=== PATIENT | female | born 1955 | race Caucasian/White ===

== ENCOUNTER 2018-10-08 14:27 | Inpatient (IN) | payer OTHER ==
[~2018-10-08] VITALS: Ht 157.5 cm; Wt 116.3 kg
[2018-10-08] MEDS ORDERED: ONDANSETRON HCL 4 MG/2 ML VIAL IV ONE (16:15)
[2018-10-08] MEDS ORDERED: MORPHINE SULFATE 4 MG/ML SYR/VIAL IV ONE (16:15)
[2018-10-08 18:06] LABS: Basophils # (auto) 0.1 uL; Eosinophils # (auto) 0.2 uL; Eosinophils % (auto) 1.9 % (0.0-7.0); Hematocrit 32.4 % (36.0-46.0); Hemoglobin 10.8 g/dL (12.2-16.2); Lymphocytes # (auto) 1.9 uL; Lymphocytes % (auto) 18.2 % (10.0-50.0); Mean Corpuscular Hemoglobin 30.2 pg (28.0-32.0); Mean Corpuscular Hgb Conc. 33.4 g/dL (32.0-36.0); Mean Corpuscular Volume 90.3 fL (80.0-100.0); Monocytes # (auto) 0.8 uL; Neutrophils # (auto) 7.3 uL; Neutrophils % (auto) 70.9 % (37.0-80.0); Platelet Count (auto) 152 10^3/uL (140-450); Red Blood Cells 3.58 10^6/uL (4.0-5.20); Red Cell Distribution Width 14.1 % (11.8-14.3); White Blood Cell 10.4 10^3/uL (4.4-10.8)
[2018-10-08 18:21] LABS: INR 1.11 (0.9-1.15); Partial Thromboplastin Time 27.6 sec (23.64-32.05)
[2018-10-08 18:26] LABS: Anion Gap 7 (5-15); BUN/Creatinine Ratio 27.4; Blood Urea Nitrogen 26 mg/dL (7-18); Carbon Dioxide 29 mmol/L (21-32); Chloride 107 mmol/L (98-107); GFR African American 76 mL/min; Glucose 102 mg/dL (74-106); Potassium 3.8 mmol/L (3.5-5.1); Sodium 143 mmol/L (136-145)
[2018-10-08 18:27] LABS: Alanine Aminotransferase 40 U/L (13-56); Albumin 2.9 g/dL (3.4-5.0); Aspartate Aminotransferase 45 U/L (15-37); Calcium 8.4 mg/dL (8.5-10.1); GFR Non-African American 63 mL/min
[2018-10-08 18:32] LABS: Alkaline Phosphatase 153 U/L (45-117); Bilirubin, Total 0.6 mg/dL (0.2-1.0); Total Protein 7.3 g/dL (6.4-8.2)
[2018-10-08] MEDS ORDERED: MORPHINE SULF INJ 2 MG/ML SYRINGE 1ML IV PRN (18:45)
[2018-10-08] MEDS ORDERED: ACETAMINOPHEN 500 MG TAB PO PRN (18:45)
[2018-10-08] MEDS ORDERED: NITROGLYCERIN 0.4 MG SL TAB SL PRN (18:45)
[2018-10-08] MEDS ORDERED: DEXTROSE (50%) 50ML SYRG IV PRN (18:45)
[2018-10-08] MEDS ORDERED: LACTULOSE 20Gm/30ML SOLN PO PRN (18:45)
[2018-10-08] MEDS: SODIUM CHLORIDE 0.9% 1,000 ML IV SCH (19:00)
[2018-10-08 20:00] VITALS: BP 133/48
--- NOTE | 2018-10-08 20:00 | NUR ---
Telemetry admit from ER LLANOMAGDA admitted to Telemetry unit after SBAR received. Patient oriented to PRABHA SOTO RN primary RN, unit, room, bed, and unit policies regarding patient care and visiting hours. Patient now on continuous telemetry monitoring, tele box # 15 and telemetry reading on arrival to unit is Sinus Rhytm as 74bpm. Patient placed on bedside oxygen, weighed by bedscale and encouraged to call if they need something. All questions and concerns addressed, patient verbalized understanding.
--- NOTE | 2018-10-08 20:00 | NUR ---
Patient is alert and awake, c/o pain to right lower extremity of 10/10. Noted multiple small scabs and bruising to both upper and lower extremities. large bruising to right hip and redness to bilateral abdominal folds. Patient has Ramirez catheter draining clear yellow urine. Bed placed in lowest position, bed alarm turned on and call lights within reach.
[2018-10-08] MEDS ORDERED: cefTRIAXone 1GM/50ML D5W 50 ML IV ONE (20:30)
[2018-10-08] MEDS: MORPHINE SULF INJ 2 MG/ML SYRINGE 1ML IV PRN (21:03)
[2018-10-08] MEDS: ACCU-CHEK COMFORT CURVE STRIP VI SCH (21:49)
[2018-10-08] MEDS: InsuLIN REG 1unit/0.01ml Soln (100units/ml) SC SCH (21:49)
[2018-10-08] MEDS: CLINDAMYCIN 600MG IV 50 ML IV SCH (21:49)
[2018-10-08 22:00] VITALS: BP 133/48
[2018-10-08] MEDS: HYDROcodone-ACET 5/325MG TAB PO PRN (23:23)
[2018-10-09] MEDS: MORPHINE SULF INJ 2 MG/ML SYRINGE 1ML IV PRN ×4 (01:24→16:45)
[2018-10-09 05:00] VITALS: BP 129/63
[2018-10-09] MEDS: CLINDAMYCIN 600MG IV 50 ML IV SCH ×2 (05:37→14:07)
[2018-10-09] MEDS: SODIUM CHLORIDE 0.9% 1,000 ML IV SCH ×2 (06:26→15:27)
[2018-10-09] MEDS: ACCU-CHEK COMFORT CURVE STRIP VI SCH ×3 (06:26→17:39)
[2018-10-09] MEDS: InsuLIN REG 1unit/0.01ml Soln (100units/ml) SC SCH ×3 (06:27→17:40)
--- NOTE | 2018-10-09 06:39 | NUR ---
PATIENT IS RESTING IN BED WITH EYES CLOSED. NO DISTRESS NOTED AND PATIENT JUST RECEIVED MORPHINE FOR PAIN OF 10/10 TO RIGHT LEG.
--- NOTE | 2018-10-09 07:30 | NUR ---
Opening Shift Note Assumed care of patient, awake and alert. No S/S of distress/SOB or pain. Instructed on POC and to call for assist PRN, will continue to monitor for changes Q1hr and PRN. Bed in low and locked position, rails up x2, no-slip socks on.
[2018-10-09] MEDS: HYDROcodone-ACET 5/325MG TAB PO PRN ×2 (08:59→15:28)
[2018-10-09 09:22] VITALS: BP 133/55
[2018-10-09] MEDS ORDERED: PANTOPRAZOLE 40 MG TAB PO SCH (10:00)
--- NOTE | 2018-10-09 12:09 | NUR ---
SPOKE TO [place] UPDATED ON PLAN OF CARE.
[2018-10-09 12:45] VITALS: BP 153/69
--- NOTE | 2018-10-09 12:50 | NUR ---
DR MCGEE AT BEDSIDE ORDERS FOR TRANSFER TO [place], PATIENT VERBALIZES UNDERSTANDING.
--- NOTE | 2018-10-09 14:10 | NUR ---
Transfer order faxed to [facility] , this pt's CM at [facility] for today is Arnav
[2018-10-09 15:04] LABS: Hematocrit 34.2 % (36.0-46.0); Hemoglobin 11.5 g/dL (12.2-16.2)
[2018-10-09] MEDS ORDERED: PERCOT PO (15:22)
[2018-10-09] MEDS ORDERED: GABA-339 PO (15:22)
[2018-10-09] MEDS ORDERED: INSR100KIT SC ×2 (15:22)
[2018-10-09] MEDS ORDERED: METF-370 PO (15:22)
[2018-10-09] MEDS ORDERED: FLUO-125 PO (15:22)
[2018-10-09] MEDS ORDERED: FLUT500M2 INH (15:22)
[2018-10-09] MEDS ORDERED: ATOR20TA50 PO (15:22)
[2018-10-09] MEDS ORDERED: POTA1TAB61 PO (15:22)
[2018-10-09] MEDS ORDERED: INSUINJ48 SC ×2 (15:22)
[2018-10-09] MEDS ORDERED: CEPH500C PO (15:22)
[2018-10-09] MEDS ORDERED: FURO40TA4 PO (15:22)
[2018-10-09] MEDS ORDERED: DULO60CA PO (15:22)
--- NOTE | 2018-10-09 15:31 | NUR ---
MED REC UPDATED
[2018-10-09 16:24] VITALS: BP 144/55
--- NOTE | 2018-10-09 17:10 | NUR ---
[facility] ACCEPTED PATIENT IS GOING TO [place] [id number] TRANSPORT TIME IS SET AT 1930 Addendum: 10/09/18 at 1735 by KELLY STEWART RN RN SPOKE TO VELVET-LIBRARY DIRECTOR FROM [facility]
--- NOTE | 2018-10-09 18:55 | NUR ---
REPORT CALLED TO DONNER SPOKE TO DAHLIA HEBERT AT [phone]
--- NOTE | 2018-10-09 19:28 | NUR ---
DISCHARGE Discharge instructions given as ordered. Encourage to follow up with PMD as instructed. All questions and concerns addressed. Patient verbalized understanding. Medication reconciliation form completed and copy given to patient. IV remained intact on discharge. Telemetry unit returned to [facility]. Patient taken to vehicle via gurney and [facility] staff with all personal belongings. No distress noted at time of departure.
[2018-10-09] MEDS ORDERED: cefTRIAXone 1GM/50ML D5W 50 ML IV SCH (21:00)
== END 2018-10-09 19:30 | disposition short-term general hospital (02) | DRG 563 ==
LOC: EDBD 14:27 → ER 14:50 → TELE 14:51 → TELE-EAST 19:57
PROVIDERS: ADMIT Internal Medicine; ATTEND Internal Medicine
DX: S82.001A Unspecified fracture of right patella, initial encounter for closed fracture (principal); L03.115 Cellulitis of right lower limb; Z68.42 Body mass index [BMI] 45.0-49.9, adult; D63.8 Anemia in other chronic diseases classified elsewhere; M19.90 Unspecified osteoarthritis, unspecified site; E11.42 Type 2 diabetes mellitus with diabetic polyneuropathy; E66.01 Morbid (severe) obesity due to excess calories; I70.90 Unspecified atherosclerosis; W18.39XA Other fall on same level, initial encounter; Y93.89 Activity, other specified; Y92.89 Other specified places as the place of occurrence of the external cause; Y99.8 Other external cause status; G89.29 Other chronic pain; Z79.891 Long term (current) use of opiate analgesic; Z83.3 Family history of diabetes mellitus; Z88.8 Allergy status to other drugs, medicaments and biological substances; Z91.013 Allergy to seafood
CPT/HCPCS: 36415; 51702; 71045; 73130; 73562; 73630; 73700; 80053; 82962; 83036; 84484; 85014; 85018; 85025; 85610; 85730; 96374; 96375; G0378; J0696; J1815; J2405; J3490; J7042

== ENCOUNTER 2019-09-20 15:07 | Inpatient (IN) | payer MEDICARE, MEDICAID ==
[~2019-09-20] VITALS: Ht 157.5 cm; Wt 105.0 kg
[~2019-09-20 15:07] MED LIST: ATOR20TA50 PO; CEPH500C PO; DULO60CA PO; FLUO-125 PO; FLUT500M2 INH; FURO40TA4 PO; GABA-339 PO; INSR100KIT SC; INSUINJ48 SC; METF-370 PO; PERCOT PO; POTA1TAB61 PO; levoFLOXacin 500MG 100 ML IV ONE
[2019-09-20] MEDS ORDERED: PIPERACILLIN-TAZOB 3.375GM 100 ML IV ONE (15:45)
[2019-09-20 16:18] LABS: Basophils # (auto) 0.1 10 ^3/uL (0-0.2); Basophils % (auto) 0.8 % (0.0-2.0); Eosinophils # (auto) 0.1 10 ^3/uL (0-0.8); Eosinophils % (auto) 2.4 % (0.0-7.0); Hematocrit 28.6 % (36.0-46.0); Hemoglobin 9.4 g/dL (12.2-16.2); Lymphocytes # (auto) 1.3 10 ^3/uL (0.4-5.4); Lymphocytes % (auto) 20.2 % (10.0-50.0); Mean Corpuscular Hemoglobin 29.4 pg (28.0-32.0); Mean Corpuscular Hgb Conc. 32.9 g/dL (32.0-36.0); Mean Corpuscular Volume 89.3 fL (80.0-100.0); Monocytes # (auto) 0.6 10 ^3/uL (0-1.3); Monocytes % (auto) 10.4 % (0.0-12.0); Neutrophils # (auto) 4.1 10 ^3/uL (1.6-8.6); Neutrophils % (auto) 66.2 % (37.0-80.0); Nucleated Red Blood Cells % 0.1 %; Platelet Count (auto) 177 10^3/uL (140-450); Red Cell Distribution Width 14.1 % (11.8-14.3); White Blood Cell 6.2 10^3/uL (4.4-10.8)
[2019-09-20 16:33] LABS: Alanine Aminotransferase 14 U/L (13-56); Albumin 2.3 g/dL (3.4-5.0); Anion Gap 1 (5-15); BUN/Creatinine Ratio 16.7; Blood Urea Nitrogen 23 mg/dL (7-18); Carbon Dioxide 38 mmol/L (21-32); Chloride 102 mmol/L (98-107); GFR African American 49 mL/min; GFR Non-African American 41 mL/min; Glucose 107 mg/dL (74-106); Potassium 3.7 mmol/L (3.5-5.1); Sodium 141 mmol/L (136-145)
[2019-09-20 16:38] LABS: Alkaline Phosphatase 130 U/L (45-117); Aspartate Aminotransferase 25 U/L (15-37); Bilirubin, Total 0.6 mg/dL (0.2-1.0); INR 1.2 (0.9-1.15); Total Protein 7.8 g/dL (6.4-8.2)
[2019-09-20 17:50] LABS: Urine Bacteria NONE SEEN /hpf (None Seen); Urine Blood Negative /uL (Negative); Urine Mucus FEW (None Seen); Urine Specific Gravity 1.012 (1.001-1.035); Urine WBC 1 /hpf (0 - 5)
[2019-09-20] MEDS ORDERED: DEXTROSE (50%) 50ML SYRG IV PRN (21:15)
[2019-09-20] MEDS ORDERED: NITROGLYCERIN 0.4 MG SL TAB SL PRN (21:15)
[2019-09-20] MEDS ORDERED: MORPHINE SULF INJ 2 MG/ML SYRINGE 1ML IV PRN (21:15)
[2019-09-20] MEDS ORDERED: ONDANSETRON HCL 4 MG/2 ML VIAL IV PRN (21:15)
[2019-09-20] MEDS ORDERED: FUROSEMIDE 40 MG/4 ML VIAL IV ONE (21:15)
[2019-09-20] MEDS ORDERED: ACETAMINOPHEN 325 MG TAB PO PRN (21:15)
[2019-09-20] MEDS: ACCU-CHEK COMFORT CURVE STRIP VI SCH (22:00)
[2019-09-20] MEDS: ATORVASTATIN 20 MG TAB PO SCH (23:10)
[2019-09-20] MEDS: GABAPENTIN 300 MG CAP PO SCH (23:10)
[2019-09-20] MEDS: InsuLIN REG 1unit/0.01ml Soln (100units/ml) SC SCH (23:11)
[2019-09-21] MEDS: HYDROcodone-ACET 5/325MG TAB PO PRN ×3 (04:43→21:49)
[2019-09-21] MEDS: GABAPENTIN 300 MG CAP PO SCH ×3 (05:55→21:37)
[2019-09-21] MEDS: FUROSEMIDE 20 MG/2 ML VIAL IV SCH ×2 (05:55→17:09)
[2019-09-21 06:09] LABS: Basophils # (auto) 0.1 10 ^3/uL (0-0.2); Basophils % (auto) 1.1 % (0.0-2.0); Eosinophils # (auto) 0.1 10 ^3/uL (0-0.8); Eosinophils % (auto) 1.7 % (0.0-7.0); Hematocrit 27.3 % (36.0-46.0); Hemoglobin 9.1 g/dL (12.2-16.2); Lymphocytes # (auto) 0.9 10 ^3/uL (0.4-5.4); Lymphocytes % (auto) 12.9 % (10.0-50.0); Mean Corpuscular Hemoglobin 29.8 pg (28.0-32.0); Mean Corpuscular Hgb Conc. 33.4 g/dL (32.0-36.0); Mean Corpuscular Volume 89.2 fL (80.0-100.0); Monocytes # (auto) 0.7 10 ^3/uL (0-1.3); Monocytes % (auto) 10.7 % (0.0-12.0); Neutrophils % (auto) 73.6 % (37.0-80.0); Nucleated Red Blood Cells % 0.1 %; Platelet Count (auto) 175 10^3/uL (140-450); Red Blood Cells 3.07 10^6/uL (4.0-5.20); Red Cell Distribution Width 14.3 % (11.8-14.3); White Blood Cell 6.8 10^3/uL (4.4-10.8)
[2019-09-21 06:23] LABS: BUN/Creatinine Ratio 18.3; Calcium 8.4 mg/dL (8.5-10.1); Potassium 3.5 mmol/L (3.5-5.1)
[2019-09-21] MEDS: ACCU-CHEK COMFORT CURVE STRIP VI SCH ×4 (07:00→21:39)
[2019-09-21] MEDS: InsuLIN REG 1unit/0.01ml Soln (100units/ml) SC SCH ×4 (07:00→21:36)
[2019-09-21] MEDS ORDERED: levoFLOXacin 500MG 100 ML IV ONE (10:00)
--- NOTE | 2019-09-21 10:45 | NUR ---
Telemetry admit from ER RITIKAMAGDA admitted to Telemetry unit after SBAR received. Patient oriented to ABNER ANDERSON, primary RN, unit, room, bed, and unit policies regarding patient care and visiting hours. Patient now on continuous telemetry monitoring, tele box #24. Patient weighed by bedscale and encouraged to call if they need something. All questions and concerns addressed, patient verbalized understanding. Alert and oriented.
[2019-09-21] MEDS: levoFLOXacin 500MG 100 ML IV SCH (10:56)
[2019-09-21] MEDS: ENOXAPARIN SOD 40 MG/0.4 ML SYRINGE SC SCH ×2 (10:56→21:38)
[2019-09-21 11:00] VITALS: BP 132/83
[2019-09-21 13:00] VITALS: BP 128/64
[2019-09-21] MEDS ORDERED: IOHEXOL 350 MG/ML 100ML IJ ONE (13:05)
[2019-09-21 13:18] VITALS: BP 132/83
--- NOTE | 2019-09-21 14:34 | NUR ---
TRANSFER TO [facility] PATIENT WAS TRANSFERRED TO DAHLIA MANDEL ON CENTRAL UNIT. REPORT WAS GIVEN. IV PATENT AND INTACT. RUSHING PATENT AND INTACT. ALL BELONGINGS AND CHART WENT WITH PATIENT.
--- NOTE | 2019-09-21 14:36 | NUR ---
MRSA SWAB/ MED LIST NOTIFIED OF MED LIST REQUEST/MRSA SWAB NOTIFIED CENTRAL RN THAT MRSA SWAB IS NEEDED. ALSO, PATIENT DOESN'T KNOW WHAT MEDICATIONS SHE TAKES. INFORMED [facility] RN TO CALL [facility] TO SEE IF THEY CAN FAX OVER HER MED LIST.
--- NOTE | 2019-09-21 14:38 | NUR ---
Received patient from [facility] patient (-) COVID.
[2019-09-21 17:06] VITALS: BP 130/65
--- NOTE | 2019-09-21 19:00 | NUR ---
Endorsed patient to car shifter RN Mirian that patient has orders for MRSA Swab and needs list of medications from [facility]. Patient only remembers she takes Gabapentin at the facility.
--- NOTE | 2019-09-21 19:20 | NUR ---
RESUMED CARE OF PT, PT AWAKE AND ALERT NO SIGNS AND SYMPTOMS OF DISTRESS OR SOB NOTED. BED IS IN THE LOWEST LOCKED POSITION, SIDE RAILS UP X 2 CALL LIGHT WITH IN REACH. UPDATED PT ON PLAN OF CARE AND PT VERBALIZED UNDERSTANDING WILL CONTINUE TO MONITOR Q1HR AN PRN
[2019-09-21] MEDS: ATORVASTATIN 20 MG TAB PO SCH (21:37)
[2019-09-21 22:00] VITALS: BP 129/58
--- NOTE | 2019-09-21 22:45 | NUR ---
SENT MRSA SWAB
[2019-09-22 05:00] VITALS: BP_SYST 140; BP_SYST 99; BP_DIAS 55; BP_DIAS 59
[2019-09-22] MEDS: FUROSEMIDE 20 MG/2 ML VIAL IV SCH (06:03)
[2019-09-22] MEDS: GABAPENTIN 300 MG CAP PO SCH ×3 (06:04→21:26)
[2019-09-22] MEDS: ACCU-CHEK COMFORT CURVE STRIP VI SCH ×4 (06:04→21:27)
[2019-09-22] MEDS: InsuLIN REG 1unit/0.01ml Soln (100units/ml) SC SCH ×4 (06:05→21:59)
[2019-09-22] MEDS: HYDROcodone-ACET 5/325MG TAB PO PRN ×2 (07:02→22:01)
--- NOTE | 2019-09-22 07:38 | NUR ---
RESUMED CARE OF PT FROM NOC SHIFT RN. PT AWAKE, ALERT AND ORIENTED X4. SITTING ON EDGE OF BED AND EATING BREAKFAST. NO SIGNS AND SYMPTOMS OF DISTRESS OR SOB NOTED. BED IS IN THE LOWEST LOCKED POSITION, SIDE RAILS UP X 2 CALL LIGHT WITHIN REACH. PLAN OF CARE DISCUSSED AND PT VERBALIZED UNDERSTANDING. WILL CONTINUE TO MONITOR Q1HR AN PRN
[2019-09-22 08:15] VITALS: BP 129/54
[2019-09-22] MEDS: levoFLOXacin 500MG 100 ML IV SCH (11:17)
[2019-09-22] MEDS: ENOXAPARIN SOD 40 MG/0.4 ML SYRINGE SC SCH ×2 (11:17→21:27)
[2019-09-22 13:00] VITALS: BP 143/55
--- NOTE | 2019-09-22 16:58 | NUR ---
DR REYES AT BEDSIDE, DISCUSSED PLAN OF CARE WITH PATIENT. NEW ORDER FOR LASIX 40MG IV BID AND TO DISCONTINUE LASIX 20MG. ORDERED TO HOLD LOVENOX DOSE UNTIL THORACENTESIS PROCEDURE ON TUESDAY ORDERED REPEAT CHEST X-RAY IN THE AM.
[2019-09-22 17:10] VITALS: BP 140/57
[2019-09-22] MEDS ORDERED: FUROSEMIDE 40 MG/4 ML VIAL IV ONE (19:00)
--- NOTE | 2019-09-22 19:20 | NUR ---
Opening shift note Assumed care of patient who is A&Ox4 and sitting on side of bed dangling legs. No SOB or s/s of distress at this time. Discussed POC with patient who verbalized understanding. Og patent, draining pink-tinged urine. Replaced og leg stat-lock. Bed in lowest locked position with 2 side rails up, call light within reach. Will continue to monitor.
[2019-09-22] MEDS: ATORVASTATIN 20 MG TAB PO SCH (21:26)
[2019-09-22 22:00] VITALS: BP 135/61
--- NOTE | 2019-09-22 22:00 | NUR ---
Pain Patient c/o 08/28 generalized body pain. Administered [place] 5/325 per EMAR. Will continue to monitor.
--- NOTE | 2019-09-22 23:10 | NUR ---
Pain Reassessed Patient resting with eyes closed, respirations even and non-labored with no s/s of distress. Will continue to monitor.
--- NOTE | 2019-09-23 01:45 | NUR ---
Changed linens/gown Patient gown and linens soiled
[2019-09-23 05:00] VITALS: BP 112/56
--- NOTE | 2019-09-23 05:40 | NUR ---
PHONED [facility] FOR PATIENT MED REC. Talked to Mimi at [facility] who stated that the staff had no access to the patient's medication list and that Flora would be the person to contact in order to fax the medication list over. Flora will be available to call after 0800 hrs.
[2019-09-23] MEDS: ACCU-CHEK COMFORT CURVE STRIP VI SCH ×4 (06:40→22:08)
[2019-09-23] MEDS: GABAPENTIN 300 MG CAP PO SCH ×3 (06:40→22:08)
[2019-09-23] MEDS: FUROSEMIDE 40 MG/4 ML VIAL IV SCH ×2 (06:40→18:13)
[2019-09-23] MEDS: InsuLIN REG 1unit/0.01ml Soln (100units/ml) SC SCH ×4 (06:56→22:20)
--- NOTE | 2019-09-23 07:30 | NUR ---
Closing shift note Patient resting without s/s of distress, endorsed care to day Ainsley VILLAGOMEZ.
[2019-09-23 09:00] VITALS: BP 132/84
[2019-09-23] MEDS ORDERED: FLUoxetine HCL 20 MG CAP PO SCH (10:00)
[2019-09-23] MEDS: levoFLOXacin 500MG 100 ML IV SCH (10:01)
[2019-09-23] MEDS: ENOXAPARIN SOD 40 MG/0.4 ML SYRINGE SC SCH (10:01)
[2019-09-23] MEDS: HYDROcodone-ACET 5/325MG TAB PO PRN ×2 (10:09→22:07)
--- NOTE | 2019-09-23 10:22 | NUR ---
Chasidy Vaughn/ Re: Med list Contacted [facility] regarding patient med list. They stated they sent everything with her - H&P, falls, med list, etc. There are no papers in the patient's chart here. The charge nurse, Aviva, went over the medication list. Entered into med req.
[2019-09-23] MEDS: DULoxetine HCL 30 MG CAP PO SCH (10:29)
[2019-09-23] MEDS ORDERED: GABA300C10 PO (10:36)
[2019-09-23] MEDS ORDERED: DULO60CA PO (10:47)
[2019-09-23] MEDS ORDERED: ASCO500T11 PO (10:48)
[2019-09-23] MEDS ORDERED: ALBU2TAB4 INH (10:48)
[2019-09-23] MEDS ORDERED: INSREG3 SUBCUT (10:48)
[2019-09-23] MEDS ORDERED: FERR-20 PO (10:48)
[2019-09-23] MEDS ORDERED: OMEP20TA PO (10:48)
[2019-09-23] MEDS ORDERED: ALBUAER3 IN (10:48)
[2019-09-23] MEDS ORDERED: CHOL20007 PO (10:48)
[2019-09-23] MEDS ORDERED: TRAZ50TA2 PO (10:48)
[2019-09-23] MEDS ORDERED: ROPI6TAB PO (10:48)
[2019-09-23] MEDS ORDERED: AML5T PO (10:48)
[2019-09-23] MEDS ORDERED: CYCL15CA PO (10:48)
[2019-09-23 13:00] VITALS: BP 128/67
[2019-09-23 17:00] VITALS: BP 120/74
--- NOTE | 2019-09-23 19:25 | NUR ---
Opening shift note Assumed care of patient who is A&Ox4 with no s/s of distress. Discussed POC with patient who verbalized understanding. Ramirez patent draining pink-tinged urine. Bed in lowest locked position with 2 side rails up, call light within reach. Requested patient to call for assistance with walking to restroom. Will continue to monitor.
--- NOTE | 2019-09-23 22:00 | NUR ---
Pain Patient c/o 08/28 generalized body pain. Administered [place] 5/325 per EMAR. Will continue to monitor.
[2019-09-23] MEDS: ATORVASTATIN 20 MG TAB PO SCH (22:07)
--- NOTE | 2019-09-23 23:00 | NUR ---
Pain reassessed Patient resting with eyes closed, no SOB or s/s of distress. Will continue to monitor.
[2019-09-24 00:40] VITALS: BP 136/64
--- NOTE | 2019-09-24 03:32 | NUR ---
Patient bath with new gown. Barrier cream applied to abdominal folds.
[2019-09-24] MEDS: GABAPENTIN 300 MG CAP PO SCH ×3 (05:44→21:33)
[2019-09-24] MEDS: FUROSEMIDE 40 MG/4 ML VIAL IV SCH ×2 (05:44→18:13)
[2019-09-24] MEDS: ACCU-CHEK COMFORT CURVE STRIP VI SCH ×4 (05:44→21:33)
[2019-09-24 06:00] VITALS: BP 141/51
[2019-09-24] MEDS: InsuLIN REG 1unit/0.01ml Soln (100units/ml) SC SCH ×4 (06:00→21:39)
--- NOTE | 2019-09-24 07:31 | NUR ---
Closing shift note Patient resting with eyes closed, no s/s of distress or SOB. Endorsed care to day RN, Summer.
--- NOTE | 2019-09-24 07:45 | NUR ---
Opening Note Received report from black top machine operator RN. Patient is awake, alert and oriented x4. Patient is on 3L NC, denies shortness of breath. Patient states generalized body pain 6/10 and is requesting medications, will medicate per orders. Reviewed plan of care with patient, patient verbalized understanding. Bed in low and locked position, call light within reach. Will continue to monitor Q1 hour and PRN.
[2019-09-24 09:00] VITALS: BP 106/32
[2019-09-24] MEDS: ENOXAPARIN SOD 40 MG/0.4 ML SYRINGE SC SCH (09:22)
[2019-09-24] MEDS: levoFLOXacin 500MG 100 ML IV SCH (09:30)
[2019-09-24] MEDS: DULoxetine HCL 30 MG CAP PO SCH (09:30)
[2019-09-24] MEDS: HYDROcodone-ACET 5/325MG TAB PO PRN ×2 (09:31→22:00)
--- NOTE | 2019-09-24 10:56 | NUR ---
Dr. Jumana King at bedside Discussing plan of care with patient and this RN. New orders received. Will continue to monitor Q1 hour and PRN.
[2019-09-24 11:47] LABS: Basophils # (auto) 0 10 ^3/uL (0-0.2); Basophils % (auto) 0.8 % (0.0-2.0); Eosinophils # (auto) 0.2 10 ^3/uL (0-0.8); Eosinophils % (auto) 3.4 % (0.0-7.0); Hematocrit 27.8 % (36.0-46.0); Hemoglobin 9.3 g/dL (12.2-16.2); Lymphocytes # (auto) 1.3 10 ^3/uL (0.4-5.4); Lymphocytes % (auto) 20.1 % (10.0-50.0); Mean Corpuscular Hemoglobin 29.7 pg (28.0-32.0); Mean Corpuscular Hgb Conc. 33.6 g/dL (32.0-36.0); Mean Corpuscular Volume 88.5 fL (80.0-100.0); Monocytes # (auto) 0.8 10 ^3/uL (0-1.3); Monocytes % (auto) 12.5 % (0.0-12.0); Neutrophils % (auto) 63.2 % (37.0-80.0); Nucleated Red Blood Cells % 0.2 %; Platelet Count (auto) 185 10^3/uL (140-450); Red Blood Cells 3.14 10^6/uL (4.0-5.20); Red Cell Distribution Width 14.3 % (11.8-14.3); White Blood Cell 6.4 10^3/uL (4.4-10.8)
[2019-09-24 12:07] LABS: INR 1.28 (0.9-1.15); Potassium 3.2 mmol/L (3.5-5.1)
[2019-09-24 12:13] LABS: Albumin 2.4 g/dL (3.4-5.0); BUN/Creatinine Ratio 11.9; Bilirubin, Total 0.7 mg/dL (0.2-1.0); Calcium 8.5 mg/dL (8.5-10.1)
[2019-09-24 13:00] VITALS: BP 127/51
--- NOTE | 2019-09-24 13:57 | NUR ---
Nutrition Assessment Notes Please refer to link for full assessment notes. Est Energy needs: [id number] kcals (12-15 kcal/kgBW) Est Protein needs: 101-114 gms/day (0.8-0.9 gm/kgBW) Will continue to monitor and reassess prn. Addendum: 09/24/19 at [address] Amended: Links added.
--- NOTE | 2019-09-24 16:29 | NUR ---
Call from certified nuclear medicine technologist Md unable to do thoracentesis on patient today, state he can do it tomorrow morning. Patient updated on plan of care, verbalized understanding. Will continue to monitor Q1 hour and PRN.
[2019-09-24 17:00] VITALS: BP 127/52
--- NOTE | 2019-09-24 18:48 | NUR ---
IV Removed IV removed with clean sterile technique from right AC, catheter fully intact. Pressure dressing applied to site. Patient tolerated well. Will continue to monitor.
--- NOTE | 2019-09-24 19:05 | NUR ---
Closing Note Report given to fast food shift supervisor RN. No signs or symptoms of distress noted at this time.
--- NOTE | 2019-09-24 19:30 | NUR ---
Opening shift note Assumed care of patient who is A&Ox4, respirations even and non-labored. Discussed POC with patient who verbalized understanding. Bed in lowest locked position with 2 side rails up, call light within reach. Will continue to monitor.
[2019-09-24] MEDS: ATORVASTATIN 20 MG TAB PO SCH (21:32)
[2019-09-24 22:00] VITALS: BP 137/54
--- NOTE | 2019-09-24 22:00 | NUR ---
Pain Patient c/o pain to her back/abdomen 08/28. Administered [place] per EMAR. Will continue to monitor.
--- NOTE | 2019-09-24 23:00 | NUR ---
Pain reassessed Patient sleeping without SOB or s/s of distress. Will continue to monitor.
[2019-09-25 05:00] VITALS: BP 128/60
[2019-09-25] MEDS: GABAPENTIN 300 MG CAP PO SCH ×3 (06:23→21:43)
[2019-09-25] MEDS: ACCU-CHEK COMFORT CURVE STRIP VI SCH ×4 (06:23→21:43)
[2019-09-25] MEDS: FUROSEMIDE 40 MG/4 ML VIAL IV SCH ×2 (06:23→17:47)
[2019-09-25] MEDS: InsuLIN REG 1unit/0.01ml Soln (100units/ml) SC SCH ×4 (06:24→21:44)
[2019-09-25] MEDS: HYDROcodone-ACET 5/325MG TAB PO PRN ×2 (06:25→15:01)
--- NOTE | 2019-09-25 07:37 | NUR ---
Closing shift note Patient resting with no s/s of distress or SOB. Endorsed care to day RNArianne.
--- NOTE | 2019-09-25 08:00 | NUR ---
Opening Shift Note Assumed care of patient, awake, alert and oriented X4. No S/S of distress/SOB or pain. Tele# 38, sinus rhythm @ 80 bpm. IV to right hand, 22 gauge, patent and saline locked. Urethral Ramirez catheter draining straw colored urine to gravity. Instructed on POC and to call for assist PRN, verbalized understanding. Bed locked, in lowest position, call light within reach, will continue to monitor for changes Q1hr and PRN.
[2019-09-25 09:00] VITALS: BP 122/46
[2019-09-25] MEDS: levoFLOXacin 500MG 100 ML IV SCH (09:57)
[2019-09-25] MEDS: DULoxetine HCL 30 MG CAP PO SCH (09:58)
[2019-09-25] MEDS: ENOXAPARIN SOD 40 MG/0.4 ML SYRINGE SC SCH (09:58)
[2019-09-25 12:30] VITALS: BP 116/50
--- NOTE | 2019-09-25 14:17 | NUR ---
THORACENTESIS Patient brought to Ultrasound for thoracentesis by wheelchair on portable O2. Verified patient and consent obtained. Timeout completed by Dr Ness. Right ultrasound guided thoracentesis performed. 1000ml of straw color fluid removed. Patient tolerated well. Specimen to be sent to lab. Patient to have CXR prior to returning to floor. Attempted to give SBAR to bedside RN who was unavailable.
--- NOTE | 2019-09-25 15:30 | NUR ---
Assessment Patient is a 64-year-old female who is alert and oriented. Prior to admission patient reside at [facility]. Patient informed me she has a walker for home use. Advised patient there is a Social Service consult for SNF placement at [facility]. Patient agrees with placement. Faxed clinical information to [facility]. Informed patient she has a right to participate in all discharge planning. Patient verbalized understanding and agreed to discharge plan. Faxed clinical information to [facility]. Per Angeline with [facility] ) patient has been accepted to room 24a accepting , Dr. Sanders. [facility] transportation has been arranged via wheelchair with a 21:00 brass pickler time. Informed DAHLIA Acuña. Addendum: 09/25/19 at 1539 by ANGEL NAVARRO Amended: Links added.
[2019-09-25 17:00] VITALS: BP 110/62
--- NOTE | 2019-09-25 17:26 | NUR ---
Chasidy Vaughn Verbal report given to DAHLIA Helton. [facility] per Sabrina Associate Manager Affiliate Marketing, verbalized understanding.
--- NOTE | 2019-09-25 18:01 | NUR ---
Ramirez catheter dc'd Order to discontinue Ramirez catheter. Ramirez dc'd with clean technique following deflation of balloon. Patient tolerated well with no complaints of pain. Continue care.
--- NOTE | 2019-09-25 19:21 | NUR ---
Care endorsed to DAHLIA Melvin, night nurse.
--- NOTE | 2019-09-25 19:30 | NUR ---
Opening Shift Note Assumed care of patient, awake, AAOx4. No S/S of distress/SOB or pain. On 2L oxygen via nasal cannula. Bed in lowest locked position, side rails up x2, call light within reach. Instructed on POC and to call for assist PRN, will continue to monitor for changes Q1hr and PRN.
--- NOTE | 2019-09-25 21:41 | NUR ---
PATIENT PICKED UP FOR TRANSFER TO [facility]. TRANSFERRED BY [facility]. PATIENT NO ACUTE S/S OF DISTRESS, SOB OR PAIN NOTED. IV REMOVED, CATHETER FULLY INTACT, PATIENT TOLERATED WELL. RELAY TESTER HELPER REMOVED, WILL SEND BACK TO TELE SUPERVISOR FERTILIZER. ALL BELONGINGS AND APPROPRIATE DOCUMENTS GIVEN TO PATIENT AND EMS TRANSPORTATION.
[2019-09-25] MEDS: ATORVASTATIN 20 MG TAB PO SCH (21:43)
== END 2019-09-25 21:41 | DRG 291 ==
LOC: EDBD 15:07 → ER 15:07 → TELE 15:08 → TELE-EAST 09-21 09:43 → TELE-CENTR 09-21 14:40
PROVIDERS: ADMIT Nurse Practitioner; ATTEND Family Medicine
PROC: 0W993ZZ Drainage of Right Pleural Cavity, Percutaneous Approach (ICD-10-PCS; principal; 2019-09-25)
DX: I13.0 Hypertensive heart and chronic kidney disease with heart failure and stage 1 through stage 4 chronic kidney disease, or unspecified chronic kidney disease (principal); J18.9 Pneumonia, unspecified organism; I50.33 Acute on chronic diastolic (congestive) heart failure; J96.21 Acute and chronic respiratory failure with hypoxia; L03.115 Cellulitis of right lower limb; E44.0 Moderate protein-calorie malnutrition; Z68.43 Body mass index [BMI] 50.0-59.9, adult; J91.8 Pleural effusion in other conditions classified elsewhere; E11.22 Type 2 diabetes mellitus with diabetic chronic kidney disease; E78.00 Pure hypercholesterolemia, unspecified; E78.5 Hyperlipidemia, unspecified; F32.9 Major depressive disorder, single episode, unspecified; G25.81 Restless legs syndrome; D63.8 Anemia in other chronic diseases classified elsewhere; E11.65 Type 2 diabetes mellitus with hyperglycemia; N18.3 Chronic kidney disease, stage 3 (moderate); E66.01 Morbid (severe) obesity due to excess calories; Z88.8 Allergy status to other drugs, medicaments and biological substances; Z88.6 Allergy status to analgesic agent; Z91.013 Allergy to seafood; Z79.51 Long term (current) use of inhaled steroids; Z80.0 Family history of malignant neoplasm of digestive organs; Z82.5 Family history of asthma and other chronic lower respiratory diseases; Z20.828 Contact with and (suspected) exposure to other viral communicable diseases
CPT/HCPCS: 10022; 32555; 36415; 51702; 71045; 71275; 76604; 76942; 80048; 80053; 81001; 82962; 83880; 83986; 84484; 85025; 85379; 85610; 85730; 87070; 87081; 87205; 89051; 93306; 93970; 96365; 96367; 96375; G0378; J1815; J1956; J2405; J2543